=== PATIENT | male | born 1995 | race American Indian/Alaskan Native ===

== ENCOUNTER 2017-05-31 20:24 | Emergency (ER) | payer SELFPAY ==
[2017-05-31 20:52] VITALS: BP 138/74
[2017-05-31] MEDS ORDERED: Ketorolac 60 MG/2 ML SDV IM ONE (21:32)
[2017-05-31] MEDS ORDERED: Diazepam 5 MG Tab PO ONE (21:33)
--- NOTE | 2017-05-31 21:43 | EDM.PDOC ---
ED HPI GENERAL MEDICAL PROBLEM - General Chief Complaint: Back Pain or Injury Stated Complaint: LOW BACK PAIN Time Seen by Provider: 05/31/17 21:24 Source of Information: Reports: Patient History Limitations: Reports: No Limitations - History of Present Illness INITIAL COMMENTS - FREE TEXT/NARRATIVE: acute low back pain; this is a 22 year old male present to ER via POV, reports at 4:30 pm today was cutting firewood. Lifting 8 foot lengths weighing about 400 pounds, lifting up to truck, felt a "big pop", had immediate pain. Now with worsen pain, has stabbing pain in low back to left leg with any movement. No past history of back injury denies any chronic medication denies any street drugs or other use. lives a short distance from the hospital. Onset: Sudden Onset Date: 05/31/17 Onset Time: 16:30 Duration: Constant, Getting Worse Location: Reports: Back, Lower Extremity, Left Quality: Reports: Sharp, Stabbing Severity: Severe Improves with: Reports: Immobilization Worsens with: Reports: Movement Context: Reports: Lifting Associated Symptoms: Reports: Other (painful ambulation) low back Pain Score (Numeric/FACES): 7 - Related Data Allergies Allergy/AdvReac Type Severity Reaction Status Date / Time No Known Allergies Allergy Verified 01/19/16 16:50 Home Meds: Home Meds Albuterol Sulfate [Albuterol Sulfate HFA] 1 - 2 puff IH Q4H PRN 02/18/15 [ History] Past Medical History Respiratory History: Reports: Asthma Musculoskeletal History: Reports: Fracture Other Psychiatric History: anger issues Social & Family History - Tobacco Use Smoking Status *Q: Unknown Ever Smoked Years of Tobacco use: 5 Packs/Tins Daily: 0.5 Second Hand Smoke Exposure: No - Alcohol Use Days Per Week of Alcohol Use: 1 Number of Drinks Per Day: 6 Total Drinks Per Week: 6 - Recreational Drug Use Recreational Drug Use: No - Living Situation & Occupation Living situation: Reports: Single (lives in [place] with Family, Mom, 2 Sister, 1 brother, brother 2001 age 16 yrs) ED ROS GENERAL - Review of Systems Review Of Systems: See Below Constitutional: Reports: Other (acute low back pain) HEENT: Reports: No Symptoms Respiratory: Reports: No Symptoms Cardiovascular: Reports: No Symptoms Endocrine: Reports: No Symptoms GI/Abdominal: Reports: No Symptoms : Reports: No Symptoms Musculoskeletal: Reports: Back Pain, Leg Pain (left) Skin: Reports: No Symptoms Neurological: Reports: Difficulty Walking (due to acute low back pain), Weakness Psychiatric: Reports: No Symptoms Hematologic/Lymphatic: Reports: No Symptoms Immunologic: Reports: No Symptoms ED EXAM, GENERAL - Physical Exam Exam: See Below Exam Limited By: No Limitations General Appearance: Alert, WD/WN, Moderate Distress Eye Exam: Bilateral Eye: Normal Inspection Ears: Normal External Exam Nose: Normal Inspection Throat/Mouth: Normal Inspection Head: Atraumatic, Normocephalic Neck: Normal Inspection, Supple, Non-Tender, Full Range of Motion Respiratory/Chest: No Respiratory Distress, Lungs Clear, Normal Breath Sounds, No Accessory Muscle Use Cardiovascular: Regular Rate, Rhythm, No Murmur GI/Abdominal: Normal Bowel Sounds, Soft, Non-Tender, No Distention (Male) Exam: Deferred Rectal (Males) Exam: Deferred Back Exam: Decreased Range of Motion, Muscle Spasm, Paraspinal Tenderness, Other (acute pain and muscle spasm noted to lumbar spine, radiated to left leg.) Extremities: Normal Inspection, Normal Range of Motion, Leg Pain Neurological: Alert, Oriented Psychiatric: Normal Affect, Normal Mood Skin Exam: Warm, Dry, Intact, Normal Color, No Rash Lymphatic: No Adenopathy Course - Vital Signs Last Recorded V/S: Last Vital Signs Temp 36.8 C 05/31/17 21:04 Pulse 95 05/31/17 21:04 Resp 14 05/31/17 21:04 BP 138/74 05/31/17 21:04 Pulse Ox 98 05/31/17 21:04 - Orders/Labs/Meds Orders: Active Orders 24 hr Category Date Time Status Lumbar Spine 2 or 3V [CR] Stat Exams 05/31/17 21:34 Taken Meds: Medications Discontinued Medications Generic Name Dose Route Start Last Admin Trade Name Freq PRN Reason Stop Dose Admin Diazepam 5 mg 05/31/17 21:33 05/31/17 21:49 Valium. PO 05/31/17 21:34 5 mg ONETIME ONE Administration Ketorolac Tromethamine 60 mg 05/31/17 21:32 05/31/17 21:48 Toradol IM 05/31/17 21:33 60 mg ONETIME ONE Administration - Re-Assessments/Exams Free Text/Narrative Re-Assessment/Exam: 05/31/17 21:47 imaging; lumbar spine medication; Toradol 60 mg im, Valium 5 mg po 05/31/17 22:14 xray; spine curvature noted consistant with muscle spasm. 05/31/17 22:26 improved with medication, ready for discharge to home. Departure - Departure Time of Disposition: 22:27 Disposition: Home, Self-Care 01 Condition: Good Clinical Impression: Strain of lumbar region Qualifiers: Encounter type: initial encounter Qualified Code(s): S39.012A - Strain of muscle, fascia and tendon of lower back, initial encounter - Discharge Information Instructions: Lumbosacral Strain Referrals: PCP,None [Primary Care Provider] - Forms: ED Department Discharge Care Plan Goals: Lumbar spine strain -hydrocodone 5-325mg; take one every 4 to 6 hours as needed for pain #10 -flexiral 10mg one every 8 hours as needed for muscle spasms -Motrin 800mg ; take one every 8 hours for pain -use ice to area tonight and tomorrow advise to rest, no lifting over 10 pounds, twisting or bending of spine for next 5 days avoid all high impact activities to spine such as skateboards, skiing, 4- wheeling, mudding, snowmobiling, basketball, football, soccer. will need recheck with [facility] in 5 to 7 days for recheck. return to ER for any weakness in legs, changes in bowel or bladder, worsen pain or any concerns. - Problem List & Annotations (1) Strain of lumbar region SNOMED Code(s): 979078404 Code(s): S39.012A - STRAIN OF MUSCLE, FASCIA AND TENDON OF LOWER BACK, INIT Status: Acute Priority: High Current Visit: Yes Qualifiers: Encounter type: initial encounter Qualified Code(s): S39.012A - Strain of muscle, fascia and tendon of lower back, initial encounter - Problem List Review Problem List Initiated/Reviewed/Updated: Yes - My Orders Last 24 Hours: My Active Orders 05/31/17 21:34 Lumbar Spine 2 or 3V [CR] Stat - Assessment/Plan Last 24 Hours: My Active Orders 05/31/17 21:34 Lumbar Spine 2 or 3V [CR] Stat Plan: Lumbar spine strain -hydrocodone 5-325mg; take one every 4 to 6 hours as needed for pain #10 -flexiral 10mg one every 8 hours as needed for muscle spasms -Motrin 800mg ; take one every 8 hours for pain -use ice to area tonight and tomorrow advise to rest, no lifting over 10 pounds, twisting or bending of spine for next 5 days avoid all high impact activities to spine such as skateboards, skiing, 4- wheeling, mudding, snowmobiling, basketball, football, soccer. will need recheck with [facility] in 5 to 7 days for recheck. return to ER for any weakness in legs, changes in bowel or bladder, worsen pain or any concerns.
--- NOTE | 2017-06-01 10:49 | CR ---
Lumbar Spine 2 or 3V FINDINGS: Routine views of the lumbosacral spine reveal the vertebral bodies to be of normal height w ith adequate maintenance of the intervertebral disc spaces. There is no evidence of traumatic, neopla stic, or significant arthritic change. There is no evidence of spondylolysis or spondylolisthesis. IMPRESSION: Normal lumbar spine.
== END 2017-05-31 22:29 | disposition home or self-care (01) ==
LOC: JP.ED 20:24
DX: S39.012A Strain of muscle, fascia and tendon of lower back, initial encounter (principal); J45.909 Unspecified asthma, uncomplicated; X50.0XXA Overexertion from strenuous movement or load, initial encounter
CPT/HCPCS: 72100; 96372; 99284; A9270; J1885; 99283

== ENCOUNTER 2018-02-21 19:53 | Emergency (ER) | payer SELFPAY ==
[2018-02-21 20:12] VITALS: BP 128/92
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
[2018-02-21] MEDS ORDERED: cefTRIAXone 1 GM, Lidocaine 1% 2.1 ML IM ONE ×2 (22:25)
== END 2018-02-21 22:42 | disposition home or self-care (01) ==
LOC: JP.ED 19:53
DX: S02.19XA Other fracture of base of skull, initial encounter for closed fracture (principal); J32.0 Chronic maxillary sinusitis; F17.210 Nicotine dependence, cigarettes, uncomplicated; W22.8XXA Striking against or struck by other objects, initial encounter
CPT/HCPCS: 70450; 70486; 99284; J0696

== ENCOUNTER 2019-06-02 23:37 | Emergency (ER) | payer SELFPAY ==
[2019-06-02 23:56] VITALS: BP 135/86; PULSE 61
[2019-06-03] MEDS ORDERED: Acetaminophen/HYDROcodone 325-10 MG Tab PO ONE (00:03)
[2019-06-03] MEDS ORDERED: Ibuprofen 600 MG Tab PO ONE (00:03)
--- NOTE | 2019-06-03 00:08 | EDM.PDOC ---
ED HPI GENERAL MEDICAL PROBLEM - General Chief Complaint: General Stated Complaint: BOTTOM RIGHT JAW PAIN Time Seen by Provider: 06/02/19 23:55 Source of Information: Reports: Patient History Limitations: Reports: No Limitations - History of Present Illness INITIAL COMMENTS - FREE TEXT/NARRATIVE: 24-year-old male with right lower dental pain, abscess and infection which is been worsening for the past 3 days. He starting develop some slight inflammation of the right jaw, no fevers or chills. Onset: Gradual Duration: Day(s): Location: Reports: Other (Several days right mandible) Associated Symptoms: Reports: No Other Symptoms Right Lower Jaw Pain Score (Numeric/FACES): 9 - Related Data Allergies Allergy/AdvReac Type Severity Reaction Status Date / Time No Known Allergies Allergy Verified 06/02/19 23:46 Home Meds: Home Meds Albuterol Sulfate [Albuterol Sulfate HFA] 1 - 2 puff IH Q4H PRN 02/18/15 [ History] Past Medical History Respiratory History: Reports: Asthma Musculoskeletal History: Reports: Fracture Neurological History: Reports: Head Trauma, Seizure, Other (See Below) Other Neuro History: headaches from skull fracture in January 2018 Psychiatric History: Reports: ADD, ADHD, Anxiety, Depression, Other (See Below) Other Psychiatric History: anger issues - Past Surgical History Head Surgeries/Procedures: Reports: None HEENT Surgical History: Reports: Tonsillectomy Respiratory Surgical History: Reports: None Neurological Surgical History: Reports: None Dermatological Surgical History: Reports: None Social & Family History - Family History : Reports: Dialysis - Tobacco Use Smoking Status *Q: Current Every Day Smoker Years of Tobacco use: 5 Packs/Tins Daily: 0.2 - Caffeine Use Caffeine Use: Reports: Coffee - Recreational Drug Use Recreational Drug Use: No - Living Situation & Occupation Living situation: Reports: Single (lives in [place] with Family, Mom, 2 Sister, 1 brother, brother 2000 age 16 yrs) ED ROS GENERAL - Review of Systems Review Of Systems: See Below Constitutional: Reports: Malaise. Denies: Fever, Chills HEENT: Reports: Other (Right dental pain) Respiratory: Denies: Shortness of Breath GI/Abdominal: Denies: Nausea, Vomiting Skin: Denies: Erythema Neurological: Denies: Headache ED EXAM, GENERAL - Physical Exam Exam: See Below Exam Limited By: No Limitations General Appearance: Alert, No Apparent Distress (Looks uncomfortable but not distressed) Throat/Mouth: Other (Tender along the right mandible, slight swelling developing. Very deep dental decay of the right mandibular molars with gingival erythema and swelling) Respiratory/Chest: No Respiratory Distress Course - Vital Signs Last Recorded V/S: Last Vital Signs Temp 98.5 F 06/02/19 23:53 Pulse 61 06/02/19 23:53 Resp 18 06/02/19 23:53 BP 135/86 06/02/19 23:53 Pulse Ox 100 06/02/19 23:53 - Orders/Labs/Meds Meds: Medications Discontinued Medications Generic Name Dose Route Start Last Admin Trade Name Freq PRN Reason Stop Dose Admin Hydrocodone Bitart/Acetaminophen 1 tab 06/03/19 00:03 06/03/19 00:08 Lapoint 325-10 Mg PO 06/03/19 00:04 1 tab ONETIME ONE Administration Ibuprofen 600 mg 06/03/19 00:03 06/03/19 00:09 Motrin PO 06/03/19 00:04 600 mg ONETIME ONE Administration - Re-Assessments/Exams Free Text/Narrative Re-Assessment/Exam: 06/03/19 00:06 This patient likely has developing abscesses of the right mandibular molars. He' ll be placed on penicillin, 1000 mg tonight followed by 500 mg 4 times a day. Given 1 dose of 10 mg Lapoint and 600 mg of ibuprofen. A dental referral for Monday of this week was written. He can return sooner if worsening despite the antibiotic. Departure - Departure Time of Disposition: 00:14 Disposition: Home, Self-Care 01 Clinical Impression: Dental abscess - Discharge Information Instructions: Dental Abscess, [id number] Referrals: PCP,None [Primary Care Provider] - Forms: ED Department Discharge Care Plan Goals: Take 2 doses of antibiotic tonight along with the stronger pain medication. Start the antibiotic 4 times daily tomorrow and work him to the dental clinic on Monday. Return sooner if worsening despite antibiotic such as facial swelling or fever, or vomiting the medication.
== END 2019-06-03 00:16 | disposition home or self-care (01) ==
LOC: JP.ED 23:37
DX: K04.7 Periapical abscess without sinus (principal); J45.909 Unspecified asthma, uncomplicated; F17.210 Nicotine dependence, cigarettes, uncomplicated
CPT/HCPCS: 99282; A9270